=== PATIENT | female | born 1955 | race Caucasian/White ===

== ENCOUNTER → 2017-06-15 | Day surgery (SDC) | payer MEDICARE ==
[~2017-06-15] VITALS: Ht 167.6 cm; Wt 72.5 kg
[~2017-06-15] MED LIST: ASPIRIN LO-DOSE81 MG PO; CELEXA40 MG PO; COLACE100 MG PO; COLESTID1 GM PO; COREG12.5 MG PO; COZAAR50 MG PO; DITROPAN XL5 MG PO; LASIX80 MG PO; LEVEMIR100 UNIT/1 SUB-Q; LEVOTHROID (S100 MCG PO; LEVOTHROID (SY25 MCG PO; NORCO 5-325 TA1 EACH PO; NOVOLOG100 UNIT/M SUB-Q; PROVENTIL OR V6.7 GM INH; REQUIP1 MG PO; TYLENOL325 MG PO; ULTRAM50 MG PO; VITAMIN D1000 UNIT PO; ZANTAC (NON-FO150 MG PO; ZOCOR20 MG PO
--- NOTE | ~2017-06-15 | OR ---
PATIENT'S NAME: GURMEET RAUSCH [facility] AGE: 62 Y [address] ROOM: [place] [address] [place] [facility] [place]: 06/15/[place] OR/Procedure Report DISCHARGE DATE: FAMILY PHYSICIAN: Dawood Hui MD ATTENDING PHYSICIAN: RUBEN GONZALEZ SURGEON: Ruben Gonzalez MD RATINGS ANALYST: None. DATE OF PROCEDURE: 06/15/2017 PREOPERATIVE DIAGNOSES: 1. Right abdominal and flank pain. 2. Right hydroureteronephrosis. 3. History of chronic kidney disease. POSTOPERATIVE DIAGNOSES: 1. Right abdominal and flank pain. 2. Right hydroureteronephrosis. 3. History of chronic kidney disease. OPERATIVE PROCEDURE: 1. Cystoscopy with right retrograde ureteral pyelogram. 2. Right diagnostic ureteroscopy. 3. Cystoscopy with placement of indwelling right ureteral stent. ANESTHESIA: General. INTERPRETATION OF RETROGRADE STUDIES: My interpretation was that on initial plain film imaging she did have a calcification which appeared to be along the course of her right ureter. On right retrograde ureteral pyelogram, it was difficult to tell if that calcification was within the ureter and there were no obvious filling defects however. On the retrograde images, there is no significant hydronephrosis or hydroureter. The transition point previously seen on the CT scan did not appear to be obvious today on the retrograde studies. Her upper tracts including the rest of her ureter and renal pelvis were free of any filling defects or transition points. INDICATIONS FOR PROCEDURE: The patient is a pleasant, 62-year-old female, with a 6-month history of intermittent right-sided abdominal pain. The pain has been not only located on her right upper, but also lower quadrant and sometimes in her right flank. She had recently underwent a CT scan of her abdomen and pelvis on April 30, 2017, with findings including multiple which appeared to be predominantly vascular, bilateral renal calculi, but no obvious stones within her collecting system. She was noted however to have some mild right hydroureteronephrosis down to her right external iliac vessels. There were no obvious calculi within her ureters. The patient was explained the PATIENT'S NAME: GURMEET RAUSCH [facility] AGE: 62 Y [address] ROOM: [place] [address] [place] [facility] [place]: 06/15/2017 OR/Procedure Report DISCHARGE DATE: FAMILY PHYSICIAN: Dawood Hui MD ATTENDING PHYSICIAN: RUBEN GONZALEZ risks, benefits, indications, and alternatives to above procedure and wished proceed and consented freely. DESCRIPTION OF OPERATION: The patient was brought back to the operating room, where she was placed on the OR table in the supine position. A surgical time- out was called where the patient identification, surgical site, and procedure was then verified. We also did verify the patient received an IV Levaquin antibiotic within an hour of beginning the procedure. The patient then underwent successful administration of general endotracheal anesthesia. The patient was then moved and placed in a low lithotomy position. Where her genital area was then prepped and draped in the usual sterile fashion. We began by advancing the rigid cystoscope easily into the patient's urinary bladder. Her urethra was within normal limits. Her bladder was negative for any bladder tumors, cellules, or diverticula. Her ureteral orifices were noted to be in their orthotopic location. I then advanced the Sensor guidewire and see my interpretation above of the imaging studies. We then performed a right retrograde ureteral pyelogram in the usual fashion. Of note, we had withdrawn the wire prior to performing the right retrograde ureteral pyelogram. We then readvanced a Sensor guidewire and advanced it all the way up to the patient's right renal pelvis. I then left this wire in place and then emptied her bladder and then now readvanced with a semi-rigid ureteroscope. I utilized a second guidewire to carefully navigate into her distal ureter. Her ureter was free of any calculi or stricture. I then navigated the stone all the way up into her right ureteropelvic junction and again this ureter was normal with no evidence of stricture or stones. I then carefully withdrew the ureteroscope. I then advanced a 4.8-[place] multi- length ureteral stent, deploying it, noting a good curl fluoroscopically in the patient's right renal collecting system as well as a good curl fluoroscopically in the patient's bladder. I then emptied the patient's bladder. The patient was then taken out of the lithotomy position where she was then awoken from general anesthesia, extubated, and transferred to the recovery bed and transported to the recovery room in good condition. COMPLICATIONS: None. SPECIMENS: None. DRAINS: Indwelling 4.8-[place] multi-length right ureteral stent. FOLLOWUP PLAN: We will plan to have the patient back for followup in [place] on June 27, 2017 for cystoscopy and right stent removal. PATIENT'S NAME: GURMEET RAUSCH [facility] AGE: 62 Y [address] ROOM: [place] [address] [place] [facility] [place]: 06/15/2017 OR/Procedure Report DISCHARGE DATE: FAMILY PHYSICIAN: Dawood Hui MD ATTENDING PHYSICIAN: RUBEN GONZALEZ MD GP/modl /[id number] CC: Dawood Hui MD d: 06/15/17 1357 t: 06/19/17 0905, OPERATIVE SUMMARY
[2017-06-15 07:35] LABS: BASOPHIL # 0.1 K/uL (0.0-0.2); BASOPHIL % 1.1 %; EOSINOPHIL # 0.4 K/uL (0.0-0.5); EOSINOPHIL % 4.5 %; HEMATOCRIT 33.9 % (33.0-46.0); HEMOGLOBIN 10.6 g/dL (10.0-15.0); IMMATURE GRANULOCYTE % 0.3 %; LYMPHOCYTE % 23.3 %; MCHC 31.3 gm/dL (32.0-36.5); MCV 99.1 fl (83.0-98.0); MONOCYTE # 1.4 K/uL (0.0-1.0); MONOCYTE % 15.4 %; MPV 10.7 fl (9.4-12.4); NEUTROPHIL # (ANC) 4.9 K/uL (1.8-7.8); NEUTROPHIL % 55.4 %; NRBC % 0 /100WBC (0-0.00); PLATELET COUNT 241 K/uL (150-450); RBC 3.42 M/uL (3.50-5.50); RDW-CV 12.6 % (11.9-14.6); WBC 8.8 K/uL (4.0-11.0)
[2017-06-15 07:50] LABS: ALBUMIN 3.8 gm/dL (3.5-5.0); ANION GAP 10.1 (10.0-19.0); CALCIUM 9.3 mg/dL (8.5-10.5); CREATININE 2.6 mg/dL (0.5-1.1); POTASSIUM 5.1 mMol/L (3.7-5.1); TOTAL BILIRUBIN 0.3 mg/dL (0.0-1.5); TOTAL PROTEIN 7.7 g/dL (6.0-8.4)
== END ==
LOC: GPOC 06-08 09:00 → GSDC 06-08 09:00
PROVIDERS: Urology
PROC: BT1DYZZ Fluoroscopy of Right Kidney, Ureter and Bladder using Other Contrast (ICD-10-PCS; principal; 2017-06-15)
PROC: 0T768DZ Dilation of Right Ureter with Intraluminal Device, Via Natural or Artificial Opening Endoscopic (ICD-10-PCS; 2017-06-15)
DX: N13.30 Unspecified hydronephrosis (principal); G47.30 Sleep apnea, unspecified; K21.9 Gastro-esophageal reflux disease without esophagitis; I25.10 Atherosclerotic heart disease of native coronary artery without angina pectoris; I12.9 Hypertensive chronic kidney disease with stage 1 through stage 4 chronic kidney disease, or unspecified chronic kidney disease; N18.9 Chronic kidney disease, unspecified; D63.1 Anemia in chronic kidney disease; Z95.1 Presence of aortocoronary bypass graft
CPT/HCPCS: C1769; C2617; J1100; J1956; J2001; J2405; J7030; J7120